=== PATIENT | male | born 1970 | race Caucasian/White ===

== ENCOUNTER 2021-02-10 02:45 | Outpatient (CLI) | payer BC, SELFPAY ==
[2021-02-10 07:10] LABS: HCT 43.3 % (40.0-50.0); HGB 14.5 g/dL (13.5-17.5); MCHC 33.5 % (32.0-36.0); MCV 89.5 fL (80-95); MPV 9.7 fL (8.0-11.0); Platelet Count 196 10^3/uL (130-400); RBC 4.84 10^6/uL (4.36-5.78); RDW-SD 39.3 fL; WBC 3.62 10^3/uL (4.4-10.8)
[2021-02-10 07:53] LABS: Hemoglobin A1C 5.4 % (<5.7)
[2021-02-10 08:27] LABS: ALT 32 U/L (16-63); AST 19 U/L (15-37); Albumin 4.2 g/dL (3.4-5.0); Alkaline Phosphatase 49 U/L (46-116); Anion Gap 8.9 mmol/L (3-11); BUN 11 mg/dL (7-18); Bilirubin, Total 0.3 mg/dL (0.2-1.0); CO2 27.1 mmol/L (21.0-32.0); Calculated LDL 123 mg/dL (<100); Chloride 105 mmol/L (98-107); Cholesterol 197 mg/dL (<200); Glucose 91 mg/dL (74-106); HDL Cholesterol 39 mg/dL (40-60); Potassium 4.5 mmol/L (3.5-5.1); Sodium 141 mmol/L (136-145); Total Protein 7.3 g/dL (6.4-8.2); Triglyceride 179 mg/dL (<150)
== END 2021-02-10 02:46 | disposition home or self-care (01) ==
LOC: LBO 02:45
PROVIDERS: PCP Nurse Practitioner; Visit Provider Nurse Practitioner
DX: Z13.220 Encounter for screening for lipoid disorders; Z83.3 Family history of diabetes mellitus
CPT/HCPCS: 36415; 80053; 80061; 85027; 83036

== ENCOUNTER 2021-03-17 11:32 | Outpatient (CLI) | payer BC, SELFPAY ==
--- NOTE | 2021-03-17 11:30 | RT.EKG_ITS ---
APPROVED REPORT Exam: Resting ECG Reason for Exam: episode irregular heart rate Patient Location: O HR:59 bpm ECG Measurements Heart Rate 59 AXIS ME 166 P 39 QRSd 87 QRS 45 QT 387 T 22 QTc 383 Conclusion Sinus bradycardia...rate< 60
== END 2021-03-17 11:33 | disposition home or self-care (01) ==
LOC: DI.KIM 11:48
PROVIDERS: PCP Nurse Practitioner; Visit Provider Nurse Practitioner
DX: I49.9 Cardiac arrhythmia, unspecified (principal)
CPT/HCPCS: 93010

== ENCOUNTER 2022-08-07 11:03 | Day surgery (SDC) | payer BC, SELFPAY ==
--- NOTE | 2022-08-06 22:02 | PDOC.DSDIS_ITS ---
Date of service: 08/07/22 Time of Service: 12:00 Discharge Plan Disposition Patient Disposition: Home Condition: Good Discharge Details Reason For Visit: colon scope Attending Provider: Trish Howe Primary Care Provider: Dacia Fam Home Meds and New Rx's Prescriptions: Discontinued polyethylene glycol 3350 17 gram/dose powder 238 g PO ONCE Qty: 238 0RF Rx Instructions: take per colonoscopy instructions bisacodyl [Dulcolax (bisacodyl)] 5 mg tablet,delayed release (DR/EC) 5 mg PO ONCE Qty: 4 0RF Rx Instructions: take per colonoscopy instructions Discharge Instructions Additional Instructions: D[facility] Colonoscopy Post- Op Instructions Instructions for Everyone who is given Anesthesia: For your safety, please do the following for the next twenty-four (24) hours: *Do Not operate a motor vehicle (car, truck, motorcycle, etc.) *Do Not drink alcoholic beverages or use any recreational drugs for the first 24 hours or while taking pain medications. The medications in your body may have a reaction that can be dangerous. *Do Not make any important decisions or sign any important papers. Findings: Minor diverticula of the sigmoid colon Make sure you are moving your bowels on a regular basis and avoid straining. If you find that you are having constipation then it is recommended you start on a fiber supplement such as Metamucil daily. Follow up: Repeat colonoscopy in 10 years time. 1. No lifting over 20 pounds or strenuous activity for the first 24 hours after your procedure. After 24 hours there are no restrictions on your activity but you may feel fatigued for a few days. 2. After you arrive home you may have a light meal and return to your normal diet as you can tolerate it without feeling sick to your stomach. 3. You may have a bloated, gaseous feeling in your belly (abdomen) after a colonoscopy. Passing gas and belching will help. Walking or lying down on your left side with your knees flexed may relieve the discomfort. Call the office at [phone] (Office) or [phone] (Hospital) right away if you notice any of the following: a.Vomiting of blood or ?coffee ground stools?. b.Rectal bleeding 1Tbsp, blood clots or continuous bleeding. c.Severe belly (abdominal) pain. d.A hard distended belly (abdomen) and an inability to pass gas. 4. Please don?t expect to have a normal BM (bowel movement) for 2-3 days after your procedure. 5. If there are questions regarding the findings of your procedure, please contact your doctor 6. If you are unable to contact your doctor with a problem, contact the hospital at [phone]. 7. Continue all your regular medications unless directed otherwise. I understand the above instructions and have no questions. Signature of Patient or Adult Escort Name of Responsible Adult Escort Signature of Nurse Date/Time Stand Alone Forms: Anesthesia Discharge Glenny Nicole (DSU) Activity:: see above Diet:: see above Discharge Orders Discharge Orders: Discharge Order (Routine); Ordered 08/07/22 Ordered By: Trish Howe Discharge Data Discharge Date/Time-TO BE ENTERED AT DEPARTURE: 08/07/22 13:40 DS: Diagnosis Discharge Diagnosis (1) Diverticula of colon: Status: Acute Asessment and Plan: The patient is seen and examined after their colonoscopy.? The patient has been able to pass gas.? They are not having abdominal pain.? They have been able to tolerate liquids and a snack.? They do not have any nausea or vomiting.? They are not having any chest pain or shortness of breath.??? They are not having any rectal bleeding..? Their vital signs have been stable-see nursing notes. We discussed findings during their colonoscopy, and any biopsies that were done/polyps that were removed. The patient will be sent a letter with any biopsy results, and when to repeat the colonoscopy.-see discharge instructions. Patient was given explicit instructions to follow-up regarding colonoscopy-refer to discharge instructions.? We reviewed resumption of medications. Patient verbalized understanding and discharged in stable and satisfactory condition- See nursing notes.
[2022-08-07 11:14] VITALS: BP 141/96; PULSE 61; RESP 18; TEMP 36.8; O2SAT 99
--- NOTE | 2022-08-07 11:15 | W.PM.OP ---
Date of service: 08/07/22 Time of Service: 12:03 Operative Note Operative Note DATE OF PROCEDURE: 08/07/22 PRE-OP DIAGNOSIS: screening SURGEON: Trish Howe ANESTHESIA TYPE: General:No Airway Refer to Anesthesia Record ESTIMATED BLOOD LOSS: 0 PATHOLOGY: none sent COMPLICATIONS: None Patient was transported to: same day Patient's condition: stable Procedure Description: After informed consent was obtained the patient was taken to the procedure room and placed in a left decubitous position. Monitors were applied and a time out was done. The patients name, date of , procedure, allergies to medications and metal in their body was reviewed. The patient was then sedated. Once sedated and comfortable a rectal exam was done. External exam was normal. Internal exam revealed a normal sphincter tone and no palpable masses. The prostate is smooth and without masses The scope was then introduced and retrofelexed. No internal hemorrhoids were identified. The scope was then advanced to the cecum without difficulty. The TI and appendiceal orifice were identified. The prep was BBPS 2 in all segments for total of 6. The scope was then slowly retracted over 13 minutes back into the rectum. He has very few and very small mouth diverticula confined to the sigmoid colon. There is no signs of active bleeding or infection. There are no polyps or AVMs identified. The mucosa is pink and healthy with a normal vascular pattern. The scope was removed and the patient was woken up and taken back to Same day surgery in stable condition. The patient tolerated the procedure well and there were no immediate complications. Follow up: The patient should follow up in 10 years unless they develop changes in bowel habits or other new gastrointestinal complaints.
[2022-08-07] MEDS: Lactated Ringers 1,000 ML 80 ML IV (11:31)
--- NOTE | 2022-08-07 11:44 | W.ANESPRE ---
General Info Date of Service Date Performed: 08/07/22 Height: 5 ft 9 in Weight: 98.3 kg Body Mass Index (BMI): 32.0 Surgical Procedure: Operation Date: 08/07/22 11:50 Proposed Procedure Side Surgeon melchor Howe, Meds Allergies and Home Medications Allergies Allergy/AdvReac Type Severity Reaction Status Date / Time No Known Allergies Allergy Verified 08/07/22 11:16 Current Visit Medications: Current Medications Generic Name Dose Route Start Last Admin Trade Name Freq PRN Reason Stop Dose Admin Hyoscyamine Sulfate 0.125 mg 08/07/22 11:51 Hyoscyamine 0.125 Mg Sl/Oral/Chew SL DIRECTED PRN Ringer's Solution 1,000 mls @ 80 mls/hr 08/07/22 06:00 08/07/22 11:31 IV 09/05/22 23:59 80 mls/hr INFUSION KEYANNA Administration IV Miscellaneous Supplies 1 each 08/07/22 06:00 Iv Access IV 09/05/22 23:59 DIRECTED KEYANNA Ondansetron HCl 4 mg 08/07/22 11:51 Ondansetron 4 Mg/2 Ml Vial IVP Q4H PRN PRN Nausea / Vomiting Sodium Chloride 0 ml 08/07/22 06:00 Normal Saline Flush 10 Ml Syr IV 09/05/22 23:59 PRN PRN Sodium Chloride 0 ml 08/07/22 06:00 Normal Saline 10 Ml Vial IJ 09/05/22 23:59 DIRECTED PRN Sterile Water 0 ml 08/07/22 06:00 Water,Injection,Sterile 10 Ml Vial IJ 09/05/22 23:59 DIRECTED PRN PFSH Active Problems Active Problems: Problem Status Onset Code Colon cancer screening Z12.11 Medical History Medical History Encounter to establish care Family history of diabetes mellitus 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) Routine medical exam Screening for cholesterol level 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 Surgical History Surgical History finger amputated (~2012) 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 Tobacco Smoking/Tobacco Use Status: Never Passive smoking exposure: Yes (As a child ) Second hand exposure: Yes (As a child ) Alcohol Alcohol Intake: current Alcohol intake frequency: a few times a month Substance Use Substance use: Never Substance use type: does not use Vital Signs and Lab Results Vital Signs Most Recent Vital Signs in EMR: Most Recent Vital Signs Temp Pulse Resp BP Pulse Ox 36.8 C 61 18 141/96 H 99 08/07/22 11:14 08/07/22 11:14 08/07/22 11:14 08/07/22 11:14 08/07/22 11:14 Lab Results Blood Type / Crossmatch: No Data to Display Complete Blood Count: No Data to Display Complete Metabolic Panel: No Data to Display Liver Function Panel: No Data to Display Coagulation Panel: No Data to Display Cardiac Panel: No Data to Display Arterial Blood Gas: No Data to Display Venous Blood Gas: No Data to Display Pancreas Panel: No Data to Display Thyroid Panel: No Data to Display Infectious Disease: No Data to Display Blood Cultures: No Data to Display Toxicology Panel: No Data to Display Anesthesia Assessment and Plan Anesthesia History Personal History: No History of Anesthesia Complications Family History: No Family History of Anesthesia Complications Exercise Tolerance Exercise Tolerance: Metabolic Equivalents>4 Cardiac & Pulmonary Exam Cardiac Exam: Normal S1/S2 Heart Sounds Pulmonary Exam: Clear Bilateral Breath Sounds Implantable Cardiac Device Does patient have a Pacemaker or an ICD?: No Airway Exam Known Difficult Airway: No Mallampati Class: 1 Mouth Opening: Normal (> 3cm) Thyromental Distance: Greater than 3 cm Neck Range of Motion: Full ROM Neck Circumference: Normal Teeth Condition: Normal Dentition ASA Classification ASA Score: ASA 2 Emergency Case?: No NPO Status NPO Status: NPO Clears >2 hours, Solids >8 hours Anesthesia Plan Resuscitation Status: Full Code Anesthesia Technique: General Anesthesia Airway Planned: Natural Airway Monitors Used: Standard Monitors
[2022-08-07 11:47] VITALS: BMI 32.0
[2022-08-07 12:35] VITALS: BP 120/86; PULSE 66; RESP 16; TEMP 37.2; O2SAT 97
[2022-08-07 13:05] VITALS: BP 129/77; PULSE 56; RESP 16; TEMP 36.7; O2SAT 100
--- NOTE | 2022-08-07 13:38 | W.ANESPOSTOP ---
Postoperative Evaluation Date, Time and Location Date Performed: 08/07/22 Time Performed: 13:05 Patient Location: Day Surgery Unit Vital Signs Most Recent Imported Vital Signs: Most Recent Vital Signs Temp Pulse Resp BP Pulse Ox 36.7 C 56 L 16 129/77 100 08/07/22 13:05 08/07/22 13:05 08/07/22 13:05 08/07/22 13:05 08/07/22 13:05 Pain Score Most Recent Pain Score: Most Recent Pain Score Pain Level 0 08/07/22 13:05 Assessment Mental Status: Awake (Alert & Oriented to Patient Baseline) Airway and Respiratory Function: Patent airway with normal (patient baseline) respiratory exam Cardiovascular Function: Hemodynamically Stable Hydration Status: Adequately Hydrated Nausea & Vomiting: No Nausea or Vomiting Pain: Pt. Denies Any Pain Peripheral Nerve Block: Patient did not receive a nerve block
== END 2022-08-07 13:40 | disposition home or self-care (01) ==
PROVIDERS: PCP Nurse Practitioner; Visit Provider Surgery
PROC: 0DJD8ZZ Inspection of Lower Intestinal Tract, Via Natural or Artificial Opening Endoscopic (ICD-10-PCS; CPT 45378; principal; 2022-08-07 11:45)
DX: Z12.11 Encounter for screening for malignant neoplasm of colon (principal); K57.30 Diverticulosis of large intestine without perforation or abscess without bleeding
CPT/HCPCS: 45378

== ENCOUNTER 2023-09-09 04:23 | Outpatient (CLI) | payer BC, SELFPAY ==
[2023-09-09 08:22] LABS: Abs Immature Grans 0.01 10^3/uL (0.0-0.06); Absolute Basophil Count 0.04 10^3/uL (0.0-0.2); Absolute Eosinophil Count 0.17 10^3/uL (0.0-0.7); Absolute Monocyte Count 0.34 10^3/uL (0.1-0.8); Absolute Neutrophil Count 2.06 10^3/uL (1.2-6.7); Eosinophils % 4.2 %; HCT 46.3 % (40.0-50.0); HGB 15.4 g/dL (13.5-17.5); Immature Grans % 0.2 %; Lymphocytes % 34.8 %; MCH 29.7 pg (27.0-33.0); MCHC 33.3 % (32.0-36.0); MCV 89 fL (80-95); MPV 9.9 fL (8.0-11.0); Monocytes % 8.5 %; Neutrophils % 51.3 %; Platelet Count 225 10^3/uL (130-400); RBC 5.19 10^6/uL (4.36-5.78); RDW 12.3 % (11.8-14.1); RDW-SD 39.9 fL; WBC 4.02 10^3/uL (4.4-10.8)
[2023-09-09 08:32] LABS: Hemoglobin A1C 5.5 % (<5.7)
[2023-09-09 08:54] LABS: ALT 28 U/L (16-63); AST 19 U/L (15-37); Albumin 4.3 g/dL (3.4-5.0); Alkaline Phosphatase 57 U/L (46-116); BUN 10 mg/dL (7-18); Bilirubin, Total 0.5 mg/dL (0.2-1.0); CREATININE 1.1 mg/dL (0.70-1.30); Calculated LDL 136 mg/dL (<100); Chloride 103 mmol/L (98-107); Cholesterol 226 mg/dL (<200); Estimated GFR 79.28 (mL/min/1.73m2); Glucose 101 mg/dL (74-106); HDL Cholesterol 47 mg/dL (40-60); Potassium 4.5 mmol/L (3.5-5.1); Sodium 140 mmol/L (136-145); Total Protein 8.1 g/dL (6.4-8.2); Triglyceride 219 mg/dL (<150)
== END 2023-09-09 04:24 | disposition home or self-care (01) ==
LOC: LBO 04:23
PROVIDERS: PCP Nurse Practitioner; Visit Provider Nurse Practitioner
DX: E78.5 Hyperlipidemia, unspecified (principal); E66.9 Obesity, unspecified; Z83.3 Family history of diabetes mellitus
CPT/HCPCS: 36415; 80053; 80061; 83036; 85025

== ENCOUNTER 2024-09-18 07:06 | Outpatient (CLI) | payer BC, SELFPAY ==
[2024-09-18 07:35] LABS: Absolute Basophil Count 0.02 10^3/uL (0.0-0.2); Absolute Eosinophil Count 0.09 10^3/uL (0.0-0.7); Absolute Lymphocyte Count 1.32 10^3/uL (1.2-3.4); Absolute Monocyte Count 0.35 10^3/uL (0.1-0.8); Absolute Neutrophil Count 1.94 10^3/uL (1.2-6.7); Basophils % 0.5 %; Eosinophils % 2.4 %; HCT 43.3 % (40.0-50.0); HGB 14.7 g/dL (13.5-17.5); Lymphocytes % 35.5 %; MCH 29.9 pg (27.0-33.0); MCHC 33.9 % (32.0-36.0); MCV 88 fL (80-95); MPV 9.7 fL (8.0-11.0); Monocytes % 9.4 %; Neutrophils % 52.2 %; Platelet Count 197 10^3/uL (130-400); RBC 4.92 10^6/uL (4.36-5.78); RDW 12.2 % (11.8-14.1); WBC 3.72 10^3/uL (4.4-10.8)
[2024-09-18 07:43] LABS: Bilirubin Negative (Negative); Blood Negative (Negative); Clarity Clear (Clear); Glucose Negative (Negative); Ketones Negative (Negative); Leukocyte Esterase Negative (Negative); Nitrite Negative (Negative); Specific Gravity 1.015 (1.005-1.025); Urobilinogen 0.2 mg/dL (Up to 0.2)
[2024-09-18 07:50] LABS: Hemoglobin A1C 5.2 % (<5.7)
[2024-09-18 08:01] LABS: ALT 21 U/L (16-63); AST 18 U/L (15-37); Albumin 4.2 g/dL (3.4-5.0); Alkaline Phosphatase 56 U/L (46-116); Anion Gap 6.1 mmol/L (3-11); BUN 15 mg/dL (7-18); Bilirubin, Total 0.5 mg/dL (0.2-1.0); CO2 27.9 mmol/L (21.0-32.0); CREATININE 1.1 mg/dL (0.70-1.30); Calcium 9.3 mg/dL (8.5-10.1); Calculated LDL 117 mg/dL (<100); Chloride 104 mmol/L (98-107); Cholesterol 193 mg/dL (<200); Estimated GFR 78.79 (mL/min/1.73m2); Glucose 100 mg/dL (74-106); HDL Cholesterol 38 mg/dL (>or=40); Potassium 4.1 mmol/L (3.5-5.1); Sodium 138 mmol/L (136-145); TSH 1.08 uIU/mL (0.36-3.74); Total Protein 7.6 g/dL (6.4-8.2); Triglyceride 190 mg/dL (<150)
[2024-09-18 18:37] LABS: PSA, Screening 1.5 ng/mL (<=3.5)
== END 2024-09-18 07:07 | disposition home or self-care (01) ==
LOC: LBO 07:07
PROVIDERS: PCP Nurse Practitioner; Visit Provider Family Medicine
DX: R53.83 Other fatigue (principal); Z13.9 Encounter for screening, unspecified; R39.11 Hesitancy of micturition
CPT/HCPCS: 36415; 80053; 80061; 84153; 81003; 83036; 84443; 85025